=== PATIENT | female | born 1990 | race American Indian/Alaskan Native ===

== ENCOUNTER 2022-06-08 06:11 | Emergency (ER) | payer SELFPAY ==
[2022-06-08] MEDS ORDERED: MIDAZOLAM 5 MG/5 ML INJ MDV IV ONE (06:14)
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
--- NOTE | 2022-06-08 06:38 | XRay Report ---
CHEST 1 VIEW INDICATION / CLINICAL INFORMATION: SEIZURE . COMPARISON: None available. FINDINGS: SUPPORT DEVICES: None. HEART / MEDIASTINUM: Heart size is within normal limits. Mediastinal contour demonstrates no signific ant abnormality. LUNGS / PLEURA: Lungs are clear for degree of inspiration and technique utilized. BONES: No significant osseous abnormality. ADDITIONAL FINDINGS: No significant additional findings. IMPRESSION: 1. No active cardiopulmonary disease. Signer Name: Ryan Steele II, MD Signed: 06/08/2022 6:33 AM Workstation Name: [id number]
--- NOTE | 2022-06-08 06:56 | Cat Scan Report ---
CT HEAD WITHOUT CONTRAST INDICATION / CLINICAL INFORMATION: seizure. TECHNIQUE: CT head was performed without administration of intravenous contrast. All CT scans at this location are performed using CT dose reduction for ALARA by means of automated exposure control. COMPARISON: None available. FINDINGS: CEREBRAL HEMISPHERES: There is no evidence of large territorial infarction or significant abnormality of gomez-white matter differentiation. Ventricles within normal limits. No midline shift. Basal ciste rns patent. HEMORRHAGE: None. CEREBELLUM / BRAINSTEM: No acute abnormality. A thin linear focus of increased attenuation along the right lateral wall of the interpeduncular fossa/tucker may reflect calcification artifact. ORBITS: No significant abnormality. SOFT TISSUES: No significant abnormality. SKULL: No significant abnormality. PARANASAL SINUSES / MASTOID AIR CELLS: Normal as visualized. ADDITIONAL FINDINGS: None. IMPRESSION: 1. Nonspecific linear focus of increased attenuation anterior tucker adjacent the lateral margin of the interpeduncular fossa. This may represent vascular calcification or artifact. Appearance is not typi randa of hemorrhage. Otherwise no evidence of acute intracranial pathology. Signer Name: Ryan Steele II, MD Signed: 06/08/2022 6:52 AM Workstation Name: [id number]
[2022-06-08] MEDS ORDERED: SODIUM CHLORIDE 0.9% 1000 ML 1,000 ML IV ONE (07:00)
[2022-06-08] MEDS ORDERED: MIDAZOLAM 5 MG/5 ML INJ MDV IV NR ×2 (07:00)
[2022-06-08] MEDS ORDERED: levETIRAcetam 2,000 MG in DEXTROSE 5% IN WATER 100 ML IV SCH (07:30)
[2022-06-08 08:00] LABS: Hemoglobin 12.8 gm/dl (10.1-14.3); Mean Corpuscular HGB Conc 33 % (30-34); Mean Corpuscular Volume 91 fl (79-97); Red Blood Count 4.31 M/mm3 (3.65-5.03); Red Cell Distribution Width 15.1 % (13.2-15.2)
[2022-06-08 08:04] LABS: Platelet Count 82 K/mm3 (140-440)
[2022-06-08 08:23] LABS: Alanine Aminotransferase 15 units/L (7-56); Albumin 4.2 g/dL (3.9-5); Blood Urea Nitrogen 13 mg/dL (7-17); Calcium 8.8 mg/dL (8.4-10.2); Hemolysis Index 24
[2022-06-08 08:30] LABS: BUN/Creatinine Ratio 19
[2022-06-08 12:02] VITALS: BP 108/75
== END 2022-06-08 12:02 | disposition home or self-care (01) ==
LOC: EDBD → ED 06:11
DX: D69.6 Thrombocytopenia, unspecified (principal); R56.9 Unspecified convulsions; F10.10 Alcohol abuse, uncomplicated; Z91.14 Patient's other noncompliance with medication regimen; Z79.899 Other long term (current) drug therapy
CPT/HCPCS: 36415; 70450; 71045; 80053; 82140; 82550; 83735; 85027; 96365; 99284; J1953; J2250; J7030; J7060; 80320; G0480